=== PATIENT | male | born 2000 | race Caucasian/White ===

== ENCOUNTER 2020-04-14 14:09 | Emergency (ER) | payer BC ==
[~2020-04-14] VITALS: Ht 172.7 cm; Wt 65.8 kg
[2020-04-14 14:09] VITALS: BP 128/87
[~2020-04-14 14:09] MED LIST: KEFLEX250 MG PO; NOHOMEMEDICATIONS
[2020-04-14] MEDS ORDERED: MAGIC MOUTHWASH SWISH&SPIT (15:17)
[2020-04-16 07:41] LABS: HSV PCR SOURCE TONSIL
[2020-04-17 08:08] LABS: HSV 1 DNA Negative (Negative); HSV 2 DNA Negative (Negative)
== END 2020-04-14 15:20 | disposition home or self-care (01) ==
LOC: ER 14:09
PROVIDERS: Nurse Practitioner Family
DX: K12.0 Recurrent oral aphthae (principal); H92.02 Otalgia, left ear